=== PATIENT | male | born 1990 | race Caucasian/White ===

== ENCOUNTER 2017-09-14 22:50 | Emergency (ER) | payer SELFPAY ==
[~2017-09-14] VITALS: Ht 172.7 cm; Wt 98.2 kg
[2017-09-14 23:01] VITALS: Ht 172.7 cm; Wt 98.2 kg
[2017-09-15] MEDS ORDERED: ONDANSETRON (ODT) 4 MG TAB ODT STA (01:26)
[2017-09-15] MEDS ORDERED: ACETAMINOPHEN 325 MG TAB PO ONE (01:30)
[2017-09-15] MEDS ORDERED: DICYCLOMINE 10 MG CAP PO ONE (01:30)
[2017-09-15] MEDS ORDERED: GUAIFENESIN/CODEINE 5ML CUP PO ONE (01:30)
[2017-09-15] MEDS ORDERED: IBUPROFEN 600 MG TAB PO ONE (01:30)
[2017-09-15] MEDS ORDERED: ONDA4TAB14 PO (01:44)
[2017-09-15] MEDS ORDERED: ACET500C5 PO (01:44)
[2017-09-15] MEDS ORDERED: OSLT75C PO (01:44)
[2017-09-15] MEDS ORDERED: DICY10CA60 PO (01:44)
[2017-09-15] MEDS ORDERED: IBUP-1542 PO (01:44)
--- NOTE | 2017-09-15 01:51 | ERD ---
ER Documentation Chief Complaint Chief Complaint pt reports fever, AP and vomiting since yesterday HPI 26-year-old male presents to emergency department for complaints of fever cough runny nose congestion abdominal pain vomiting and diarrhea that started yesterday. Patient has been having dry cough, does not cough up any phlegm or blood. Patient is dominant shortness of breath or wheezing. Patient is complaining of generalized abdominal pain cramping pain, 4/10 scale, intermittent accompanied with vomiting diarrhea. Patient is vomiting blood in stool or black stool. Patient denies any blood in vomit. Patient took Tylenol home with much relief. Patient does not have any sick contacts. Patient denies any recent travel. ROS All systems reviewed and are negative except as per history of present illness. Medications Home Meds Active Scripts Oseltamivir Phosphate* (Tamiflu*) 75 Mg Capsule, 75 MG PO BID for 5 Days, CAP Prov:ANUPAMA DIANA NP 09/15/17 Acetaminophen* (Tylophen*) 500 Mg Capsule, 1 CAP PO Q6H Y for PAIN AND OR ELEVATED TEMP, #20 CAP Prov:ANUPAMA DIANA NP 09/15/17 Ibuprofen* (Motrin*) 600 Mg Tab, 600 MG PO Q6H Y for PAIN AND OR ELEVATED TEMP, #30 TAB Prov:ANUPAMA DIANA NP 09/15/17 Ondansetron (Ondansetron Odt) 4 Mg Tab.rapdis, 4 MG PO Q6H Y for NAUSEA AND/OR VOMITING, #20 TAB Prov:ANUPAMA DIANA NP 09/15/17 Dicyclomine Hcl* (Bentyl*) 10 Mg Capsule, 20 MG PO QID, #20 CAP Prov:ANUPAMA DIANA NP 09/15/17 Allergies Allergies: Coded Allergies: No Known Allergy (Unverified , 09/14/17) PMhx/Soc Medical and Surgical Hx: pt denies Medical Hx, pt denies Surgical Hx FmHx Family History: No coronary disease, No diabetes, No other Physical Exam Vitals Vital Signs Date Time Temp Pulse Resp B/P Pulse Ox O2 Delivery O2 Flow Rate FiO2 09/15/17 03:20 100.9 09/15/17 02:55 101.5 09/14/17 23:01 100.7 128 20 167/93 97 Physical Exam GENERAL: The patient is well developed and appropriate for usual state of health, in no apparent distress. CHEST: Clear to auscultation bilaterally. There are no rales, wheezes or rhonchi. HEART: Regular rate and rhythm. No murmurs, clicks, rubs or gallops. No S3 or S4. ABDOMEN: Soft, nontender and nondistended. Hyperactive bowel sounds. No rebound or guarding. No gross peritonitis. No gross organomegaly or masses. No Jacobo sign or McBurney point tenderness. BACK: No midline or flank tenderness. EXTREMITIES: Equal pulses bilaterally. There is no peripheral clubbing, cyanosis or edema. No focal swelling or erythema. Full range of motion. Grossly neurovascularly intact. NEURO: Alert and oriented. Cranial nerves 2-12 intact. Motor strength in all 4 extremities with 5/5 strength. Sensation grossly intact. Normal speech and gait. SKIN: There is no apparent rash or petechia. The skin is warm and dry. HEMATOLOGIC AND LYMPHATIC: There is no evidence of excessive bruising or lymphedema. No gross cervical, axillary, or inguinal lymphadenopathy. Results 24 hrs Current Medications Medications (Trade) Dose Ordered Sig/Alfonso Route PRN Reason Start Time Stop Time Status Last Admin Dose Admin Acetaminophen (Tylenol Tab) 650 mg ONCE ONCE PO 09/15/17 01:30 09/15/17 01:31 DC 09/15/17 02:44 Ibuprofen (Motrin) 600 mg ONCE ONCE PO 09/15/17 01:30 09/15/17 01:31 DC 09/15/17 02:43 Dicyclomine HCl (Bentyl) 20 mg ONCE ONCE PO 09/15/17 01:30 09/15/17 01:31 DC 09/15/17 02:43 Ondansetron HCl (Zofran Odt) 4 mg ONCE STAT ODT 09/15/17 01:26 09/15/17 01:27 DC 09/15/17 02:43 Guaifenesin/ Codeine Phosphate (Robitussin Ac Liquid Cup) 10 ml ONCE ONCE PO 09/15/17 01:30 09/15/17 01:31 DC 09/15/17 02:44 Patient was given medicines for fever control here in the emergency department. After treatment, patient temperature improved and lower. Patient appears well and is hemodynamically stable. Bentyl Zofran guaifenesin with codeine was given here in the emergency department, verbalized feeling much better afterwards. Procedures/MDM Medical decision making: Patient symptoms was likely consistent with viral syndrome, possibly influenza. No symptoms of dehydration. Patient's fevers controlled. Low risk factors. Patient appears once hemodynamically stable. No symptoms of any respiratory distress. Lung is clear, no symptoms of any pneumonia at this time. Abdominal exam is normal, no symptoms of any acute abdominal emergencies at this time. Radiology exams or laboratory testing not indicated at this time. Prescription was given for Tamiflu Tylenol ibuprofen Zofran and Bentyl, is advised to follow-up with primary care doctor in 2-3 days reevaluation of symptoms. Patient was advised to follow with primary care doctor in 2-3 days for reevaluation of symptoms Departure Diagnosis: Primary Impression: Viral syndrome Patient Instructions: Viral Syndrome (Adult) ANUPAMA DIANA NP Sep 15, 2017 01:51
[2017-09-15 03:20] VITALS: TEMP 100.9
== END 2017-09-15 03:20 | disposition home or self-care (01) ==
LOC: FTE 22:50
DX: B34.9 Viral infection, unspecified (principal)
CPT/HCPCS: 99284